=== PATIENT | male | born 1945 | race Asian ===

== ENCOUNTER 2022-07-25 17:35 | Emergency (ER) | payer BC, OTHER ==
[~2022-07-25] VITALS: Ht 180.3 cm; Wt 85.1 kg
[2022-07-25 19:13] VITALS: BP 142/75
[2022-07-25] MEDS ORDERED: AML5T PO (19:28)
[2022-07-25] MEDS ORDERED: GLIM4TAB42 PO (19:28)
[2022-07-25] MEDS ORDERED: EMPA1TAB3 PO (19:28)
[2022-07-25] MEDS ORDERED: PIOG1TAB36 PO (19:28)
[2022-07-25] MEDS ORDERED: CARV25TA55 PO (19:28)
[2022-07-25] MEDS ORDERED: RAMI5CAP40 PO (19:28)
== END 2022-07-25 19:32 | disposition home or self-care (01) ==
LOC: ER 17:38
DX: I10 Essential (primary) hypertension (principal); E11.9 Type 2 diabetes mellitus without complications; E78.5 Hyperlipidemia, unspecified; Z76.0 Encounter for issue of repeat prescription